=== PATIENT | female | born 1970 | race Caucasian/White ===

== ENCOUNTER → 2016-10-08 | Outpatient (CLI) | payer BC ==
[~2016-10-08] MED LIST: AZITHROMYCIN500 MG PO; ENTYVIO300 MG IV; IBUPROFEN800 MG; LIALDA1.2 G; OXYCODONE HCL5 M1 PO; WELCHOL625 MG PO; ZYRTEC10 M2 PO
[2016-10-08 14:19] LABS: URINE APPEARANCE CLEAR; URINE BILIRUBIN NEG (NEG); URINE COLOR YELLOW; URINE GLUCOSE NEG (NORM); URINE KETONE TRACE (NEG); URINE NITRATE NEG (NEG); URINE PH 5.5 (5-8); URINE PROTEIN NEG (NEG); URINE SPECIFIC GRAVITY 1.025 (1.003-1.035); URINE UROBILINOGEN 0.2 MG/DL (NORM)
[2016-10-08 14:20] LABS: URINE LEUKOCYTE ESTERASE NEG (NEG)
[2016-10-08 14:21] LABS: MICRO INDICATED? NO; URINE BLOOD NEG (NEG)
[2016-10-14 16:34] LABS: ANA SCREEN Negative (Negative); CARDIOLIPIN IGG (LUPUS) <14 GPL (<=14); CARDIOLIPIN IGM (LUPUS) <12 MPL (<=12); DRVVT MIX INTERP (LUPUS) Not Indicated (()); PROTROMBIN TIME LUPUS 10.5 sec (9.0-11.5); PT (LA MIX STUDY) 10.5 sec (<=11.5); PTT-LA 35 sec (<=40); PTT-LA SCREEN (LUPUS) 35 sec (<=40); THROMBIN TIME LUPUS 16 sec (13-19); dRVVT SCREEN (LUPUS) 39 sec (<=45)
== END | disposition home or self-care (01) ==
LOC: SLAB 12:56
PROVIDERS: Specialist
DX: D84.9 Immunodeficiency, unspecified (principal)
CPT/HCPCS: 36415; 81003; 85610; 85613; 85651; 85670; 85730; 86038; 86039; 86147; 86430

== ENCOUNTER 2016-10-21 15:44 | Emergency (ER) | payer BC ==
[~2016-10-21] VITALS: Ht 160 cm; Wt 70.3 kg
--- NOTE | ~2016-10-21 | CR72 ---
[facility] A Service of [facility] RADIOLOGY TEXT RESULTS PATIENT: DELIA MENDOZA LOCATION: SED : 66 UNIT #: [id number] AGE: [address]: Ledy Cummings MD SEX: F ORDER DR: [id number] [id number] E MR#: [id number] Acc #: [id number] NAME: DELIA MENDOZA : 1970 SEX: F STUDY DATE/TIME: 10/21/2016 16:34 UNIT: SED ROOM: STUDY DESCRIPTION: CR Chest Single View Portable Attending Physician: Ledy Cummings M.D. Ordering Physician: Ledy Cummings M.D. Primary Care Physician: Primary Care Physician No MEDICAL IMAGING REPORT This report is preliminary unless electronic signature is present. EXAM Portable chest x-ray, 10/21/2016 HISTORY Fever began 5 days ago. Fever, headache, epigastric abdominal pain, sore throat, slight dry cough, breast implants. FINDINGS AP radiograph of the chest is presented. Bilateral augmentation mammoplasty. Heart and mediastinum normal in size and contour. The lungs are well inflated. There is no evidence of acute infectious or inflammatory disease, pleural effusion or pneumothorax. No suspicious nodule. Dictated by... Tom Robert M.D. THIS IS AN ELECTRONICALLY VERIFIED REPORT Tom Robert M.D. at 10/25/2016 10:43 AM CORBIN/anton TD: 10/21/2016 22:25 JOB #: [id number] MEDICAL IMAGING REPORT Page 1 of 1
[~2016-10-21 15:44] MED LIST changes: -AZITHROMYCIN500 MG PO; -ENTYVIO300 MG IV; -OXYCODONE HCL5 M1 PO; -ZYRTEC10 M2 PO
[2016-10-21] MEDS ORDERED: ENTYVIO300 MG IV (15:49)
[2016-10-21] MEDS ORDERED: AZITHROMYCIN500 MG PO (15:50)
[2016-10-21] MEDS ORDERED: ZYRTEC10 M2 PO (15:50)
[2016-10-21 16:34] LABS: BASOPHIL# 0.1 X10e3 (0-0.3); BASOPHIL% 1.2 % (0-2.5); EOSINOPHIL% 0.3 % (0.0-7.0); HEMATOCRIT 40.1 % (35.0-45.0); HEMOGLOBIN 13.2 gm/dL (12.0-16.0); LYMPHOCYTE# 1.8 X10e3 (1.0-3.5); LYMPHOCYTE% 15.5 % (17.0-45.0); MEAN CELL VOLUME 96.6 FL (83-96); MEAN CORPUSCULAR HEMOGLOBIN 31.8 PG (28-34); MEAN CORPUSCULAR HGB CONC 32.9 g/dL (30-36); MEAN PLATELET VOLUME 8.1 FL (6.5-11.5); MONOCYTE# 0.5 X10e3 (0-1.0); MONOCYTE% 4.6 % (3.0-12.0); NEUTROPHIL# 9.4 X10e3 (1.5-7.1); NEUTROPHIL% 78.4 % (40-75); PLATELET COUNT 260 X10e3 (140-420); RED BLOOD COUNT 4.15 X10e (3.90-5.30); RED CELL DISTRIBUTION WIDTH 12.6 % (11.0-15.5)
[2016-10-21 16:41] LABS: DIFF IND NO
[2016-10-21 16:53] LABS: ALBUMIN SERUM 4.6 g/dL (3.5-5.0); BILIRUBIN, DIRECT 0.1 mg/dL (0.0-0.2); BILIRUBIN,INDIRECT 0.5 mg/dL (0.0-0.9); BILIRUBIN,TOTAL 0.6 mg/dL (0.2-2.0); BUN/CREATININE RATIO 12.5; CALCIUM SERUM 9.1 mg/dL (8.4-10.2); CREATININE SERUM 0.8 mg/dL (0.6-1.4); GLOM FILT RATE Estimated 87.3 mL/min (>60); POTASSIUM 3.7 mmol/L (3.5-5.1); PROTEIN TOTAL SERUM 7.9 g/dL (6.0-8.3)
[2016-10-21 16:54] LABS: URINE SOURCE CLEAN CATCH
[2016-10-21 17:01] LABS: URINE APPEARANCE CLEAR; URINE BILIRUBIN NEG (NEG); URINE BLOOD 3+ (NEG); URINE COLOR YELLOW; URINE GLUCOSE NEG (NORM); URINE LEUKOCYTE ESTERASE NEG (NEG); URINE NITRATE NEG (NEG); URINE PH 5.5 (5-8); URINE PROTEIN NEG (NEG); URINE UROBILINOGEN 0.2 MG/DL (NORM)
[2016-10-21 17:03] LABS: MICRO INDICATED? YES; URINE KETONE 2+ (NEG)
[2016-10-21 17:34] LABS: CULTURE INDICATED? NO; URINE BACTERIA NEG (NEG); URINE WBC 0-2 /[HPF] (0-5)
== END 2016-10-21 18:16 | disposition home or self-care (01) ==
LOC: SED 15:44
PROVIDERS: Student in an Organized Health Care Education/Training Program
DX: J02.9 Acute pharyngitis, unspecified (principal); B34.9 Viral infection, unspecified; E86.0 Dehydration; R11.2 Nausea with vomiting, unspecified
CPT/HCPCS: 36415; 71010; 80048; 80076; 81003; 85025; 86308; 87651; 96361; 96374; 96375; 99284; J1885; J2550

== ENCOUNTER 2016-10-24 10:23 | Inpatient (IN) | payer BC ==
[~2016-10-24] VITALS: Ht 233.7 cm; Wt 68.5 kg
--- NOTE | ~2016-10-24 | HP ---
Unit #: [id number] #: [id number] Patient: DELIA MENDOZA [id number] [address] [place], [place] [address] [id number] MR#: [id number] NAME: DELIA MENODZA ROOM: 468 Age: 46 Sex: F Admission Date: 10/24/2016 : 1970 Attending Physician: Ana M Mora M.D. Primary Care Physician: Primary Care Physician No HISTORY AND PHYSICAL CHIEF COMPLAINT Fever for eight days with vomiting and headache HISTORY OF PRESENT ILLNESS The patient is a 46-year-old female with past medical history of ulcerative colitis who presented [facility] for evaluation of the above. The patient states that she has had fever since October 16, 2016. She states that she has been taking the temperature orally. It has been around 100 typically; however, it has reached as high as 101. She states that she has had intermittent headache. The pain is in the back of her head and neck area. She described it as "sharp" it is sudden in onset. It typically lasts anywhere from five minutes to an hour. She states that it interfered with sleep on the evening prior to admission. She also reports nausea and vomiting. She has had three bouts of nonbloody emesis within the past 24 hours and two bouts of nonbloody diarrhea. She does have ulcerative colitis and is followed by [facility]. She states that she has lost about five pounds in the past week. She denies any cough. No difficulty breathing. No urinary symptoms. The patient was seen at [facility] Emergency Department on October 21, 2016. Laboratory at that time was notable for a white blood cell count of 12. She had a mono screen as well as a strep screen that were both negative. Urinalysis was negative except for 2+ ketones. Chest x-ray showed no acute abnormality. She was discharged home. Today she returned, white blood cell count is 9.8. A CT of the head was done and showed nothing acute. CT of the abdomen and pelvis was done and showed nothing acute. She was given a gram of Vancomycin in the emergency department as well as one liter of normal saline, a gram of Tylenol, 10 mg of Reglan, 25 mg of Benadryl, 4 mg of Zofran, a mg of dilaudid and 5 mg of valium. She was sent to [facility] for admission. PAST MEDICAL HISTORY 1. The patient denies hospitalizations 2. Ulcerative colitis diagnosed in 2005, followed by Dr. Gage at [facility]. She is on Lialda. She was also started on Entyvio in March 2016. She states that she is about one week past due for the Entyvio infusion PAST SURGICAL HISTORY 1. Esophagogastroduodenoscopy and colonoscopy within the past couple of years at [facility] (no records) Unit #: [id number] #: [id number] Patient: DELIA MENDOZA 2. Tubal ligation 3. Umbilical hernia repair SOCIAL HISTORY The patient lives with her . There is no tobacco or alcohol use. She is currently unemployed. Family history is notable for her dad having Parkinson's disease. ALLERGIES Ceclor HOME MEDICATIONS 1. Zyrtec 2. Ibuprofen 3. Phenergan 4. Lialda 5. Entyvio Home medications will need to be reviewed and verified. REVIEW OF SYSTEMS A complete review of systems is negative except as indicated in the HPI. The patient states that she has lost about five pounds over the past week. She has been seeing Dr. Hector Roque for allergy testing. She states that she had a rash involving her eyelids and neck within the past couple of months with flaking of the skin. She was placed on Clobetasol. She states that Dr. Roque is working her up for possible lupus as well as other issues. Complete review of systems is negative except as indicated in the history of present illness. The patient denies any current rash. The headache is currently absent. DIAGNOSTIC STUDIES LABORATORY: Rapid strep screen from October 21 was negative. Infectious mono screen from October 21 was negative. Complete blood count from today completely normal. Comprehensive metabolic panel notable for potassium of 3.3. Urinalysis notable for trace protein, 2+ ketones, 1+ blood with 0-2 red blood cells negative for bacteria. IMAGING: Chest x-ray also from the showed no acute findings. CT of the head is negative. CT of the abdomen and pelvis shows no acute findings. PHYSICAL EXAMINATION VITAL SIGNS: Temperature 97.6, pulse 91, respirations 16, blood pressure 130/84. Oxygen saturation is 100% on room air. GENERAL: The patient is a very pleasant female who is awake and alert in no acute distress. HEENT: The head is atraumatic. Mucous membranes are moist. NECK: Supple. Trachea is midline. CARDIOVASCULAR: Regular rate and rhythm. LUNGS: Clear to auscultation bilaterally with no increased work of breathing. ABDOMEN: Soft, nontender, with bowel sounds present in all four quadrants. EXTREMITIES: Nontender with no pedal edema. NEUROLOGIC: The patient is awake and alert. She follows commands. Unit #: [id number] #: [id number] Patient: DELIA MENDOZA PSYCHIATRIC: Mood and affect are normal. The patient is cooperative. SKIN: Of examined areas is warm and dry. ASSESSMENT The patient is a 46-year-old female with: 1. Headache, resolved. 2. Nausea, vomiting, diarrhea. 3. History of ulcerative colitis, maintained on Lialda and Entyvio followed by [facility]. 4. Hypokalemia with a potassium of 3.3. 5. Fever, mostly low-grade. Both fever and headache are listed as common side effects for Entyvio. However, the patient started this medication in March. PLAN 1. Admit for observation to [facility]. 2. Regular diet as tolerated. 3. Normal saline at 125 mL/hour. 4. Blood cultures x2 if not already done. 5. CT of the chest without contrast for further evaluation of fever and cough. 6. Stool studies including ova and parasites, Clostridium difficile, culture and sensitivity. 7. Toradol p.r.n. 8. Tylenol p.r.n. 9. Consult Dr. Fonseca regarding fever. 10. Check sedimentation rate and CRP. 11. Urine toxicology screen. 12. Check magnesium level. 13. Potassium/magnesium protocol. 14. Sequential compression devices for deep venous thrombosis prophylaxis. 15. Repeat labs in the morning. 16. Additional workup and consultants based on above. Dictated by Ana M Mora M.D. RICK/kizzy TD: 10/24/2016 17:21 JOB #: [id number] HISTORY AND PHYSICAL Page 1 of 1 X Ana M Mora MD X HISTORY AND PHYSICAL
--- NOTE | ~2016-10-24 | CT4 ---
[facility] A Service of [facility] RADIOLOGY TEXT RESULTS PATIENT: DELIA MENDOZA LOCATION: C4 468-01 : [birth year] UNIT #: [id number] AGE: [address]: Carmelina Light MD SEX: F ORDER DR: [id number] [address] [address] [id number] E MR#: [id number] Acc #: [id number] NAME: DELIA MENDOZA : 1970 SEX: F STUDY DATE/TIME: 10/24/2016 12:20 UNIT: SED ROOM: STUDY DESCRIPTION: CT Abd and Pelv Wo Cont Attending Physician: Gary Montenegro M.D. Ordering Physician: Gary Montenegro M.D. Primary Care Physician: Primary Care Physician No MEDICAL IMAGING REPORT This report is preliminary unless electronic signature is present. EXAM CT abdomen and pelvis without contrast INDICATION Head and neck pain for the past 2 days with nausea and dehydration. Right upper quadrant abdominal pain and hematuria for the past [address] of the abdomen and pelvis. This CT examination was performed with one or more of the following radiation dose reduction techniques: automatic exposure control, adjustment of mA and/or kV according to patient size, and iterative reconstruction. COMPARISON 06/10/2015. FINDINGS ABDOMEN WITHOUT CONTRAST: Included lung bases are clear. There are a few hepatic cysts that are unchanged from the prior. The spleen, adrenal, pancreas unremarkable. Gallbladder is moderately distended. There are no radiodense gallstones. Moderate colonic stool burden. Bowel loops nondilated. Normal appendix. Punctate nonobstructing calculus in the right kidney. No hydronephrosis. PELVIS WITHOUT CONTRAST: No radiodense bladder calculus. No pelvic mass. No aggressive appearing bone lesion. IMPRESSION 1. No acute findings in the abdomen or pelvis. 2. Punctate nonobstructing calculus in the right kidney. [facility] A Service of [facility] RADIOLOGY TEXT RESULTS PATIENT: DELIA MENDOZA LOCATION: C4 468-01 : [birth year] UNIT #: [id number] AGE: [address]: Carmelina Light MD SEX: F ORDER DR: 3. Normal appendix. 4. Nonspecific moderate prominence of the gallbladder without radiodense gallstones. Correlate with the patients symptoms. Gallbladder would be better evaluated with a right upper quadrant ultrasound. Dictated by... Manuel Manzanares M.D. THIS IS AN ELECTRONICALLY VERIFIED REPORT Manuel Manzanares M.D. at 10/25/2016 8:15 AM MAEVE/anna TD: 10/24/2016 13:39 JOB #: [id number] MEDICAL IMAGING REPORT Page 1 of 1
--- NOTE | ~2016-10-24 | XA198 ---
[facility] A Service of [facility] RADIOLOGY TEXT RESULTS PATIENT: DELIA MENDOZA LOCATION: [facility] 468 : [birth year] UNIT #: [id number] AGE: [address]: Carmelina Light MD SEX: F ORDER DR: [id number] [place], [place] [address] [id number] I MR#: [id number] Acc #: [id number] NAME: DELIA MENDOZA : 1970 SEX: F STUDY DATE/TIME: 10/26/2016 12:32 UNIT: [facility] ROOM: [facility] STUDY DESCRIPTION: XA Spinal Puncture Attending Physician: Carmelina Light M.D. Ordering Physician: Arjun Brown M.D. Primary Care Physician: Primary Care Physician No MEDICAL IMAGING REPORT This report is preliminary unless electronic signature is present EXAM Fluoroscopically-guided lumbar puncture CLINICAL HISTORY Headache and fever. PROCEDURE Informed consent was obtained. TA skin site was selected with fluoroscopic guidance and marked, sterilely prepped and draped and locally anesthetized. Total of 0.2 minutes of fluoroscopy was utilized and a single spot image obtained. A 22-gauge spinal needle was advanced at the L4 level and a clear colorless CSF was returned. A total of 11 mL was collected for sent for testing as requested. There were no complications and the patient tolerated the procedure well. IMPRESSION Successful fluoroscopically-guided lumbar puncture. 11 mL of clear colorless CSF was obtained and sent for testing and there were no complications. Dictated by... Bunny Miilan M.D. THIS IS AN ELECTRONICALLY VERIFIED REPORT Bunny Milian M.D. at 10/27/2016 2:54 PM PANCHO/daniela TD: 10/26/2016 21:34 JOB #: [id number] MEDICAL IMAGING REPORT [facility] A Service [facility] RADIOLOGY TEXT RESULTS PATIENT: DELIA MENDOZA LOCATION: [facility] : [birth year] UNIT #: [id number] AGE: [address]: Carmelina Light MD SEX: F ORDER DR: Page 1 of 1 COPY
--- NOTE | ~2016-10-24 | CT96 ---
[facility] A Service of [facility] RADIOLOGY TEXT RESULTS PATIENT: DELIA MENDOZA LOCATION: [facility] 468-01 : [birth year] UNIT #: [id number] AGE: [address]: Carmelina Light MD SEX: F ORDER DR: [id number] [facility] [address] [place], [place] [address] [id number] I MR#: [id number] Acc #: [id number] NAME: DELAI MENDOZA : 1970 SEX: F STUDY DATE/TIME: 10/28/2016 11:31 UNIT: [facility] ROOM: [facility] STUDY DESCRIPTION: CT Lumbar Spine W Cont Attending Physician: Carmelina Light M.D. Ordering Physician: Carmelina Light M.D. Primary Care Physician: Primary Care Physician No MEDICAL IMAGING REPORT This report is preliminary unless electronic signature is present EXAM CT lumbar spine with contrast, 10/28/2016 11:31 hours HISTORY 46-year-old woman with fever for 8 days, vomiting, urinary retention for 2 days requiring Jansen catheter. Possible viral meningitis. COMPARISON CT abdomen and pelvis, 10/24/[address] images were obtained from the lower thoracic spine through the mid sacrum. Sagittal and coronal reconstructions were performed. Contrast was Isovue-370, 100 mL IV. Total exam DLP 460 mGy-cm. This CT exam was performed with one or more of the following radiation dose reduction techniques: automatic exposure control, adjustment of mA and/or kV according to patient size, and iterative reconstruction. FINDINGS The lumbar spine is normally aligned. There are no bone lesions or fractures. T12-L1 is normal. L1-L2 is normal. L2-L3 is normal. L3-L4 demonstrates mild concentric disc bulging eccentric to the right with mild right-sided foraminal narrowing. No central canal stenosis. This is similar to 10/24/2016. L4-5 demonstrates eccentric to the left disc bulging with perhaps [facility] A Service of [facility] RADIOLOGY TEXT RESULTS PATIENT: DELIA MENDOZA LOCATION: [facility] 468-01 : [birth year] UNIT #: [id number] AGE: [address]: Carmelina Light MD SEX: F ORDER DR: foraminal protrusion on the left. This too is unchanged from 10/24/2016. L5-S1 demonstrates broad-based central disc bulging touching the anterior aspect of the thecal sac without change. There is no foraminal narrowing. There is no fluid, fluid collection or abnormal enhancement. IMPRESSION 1. There is no fluid, fluid collection or abnormal enhancement. 2. There is eccentric to the right disc bulge extending into the right lateral recess and the right lateral soft tissues at L3-L4 similar to 10/24/2016. 3. There is a left-sided foraminal disc bulge or protrusion at L4-5 also unchanged. 4. There is mild broad-based disc bulging centrally at L5-S1 with mild disc height loss, unchanged. STAT * RESULT Dictated by... Hannah Casper M.D. THIS IS AN ELECTRONICALLY VERIFIED REPORT Hannah Casper M.D. at 10/28/2016 2:30 PM Sarah TD: 10/28/2016 12:04 JOB #: [id number] MEDICAL IMAGING REPORT Page 1 of 1 COPY
--- NOTE | ~2016-10-24 | CO ---
Unit #: [id number] #: [id number] Patient: DELIA MENDOZA [id number] [address] [place], [place] [address] [id number] I MR#: [id number] NAME: DELIA MENDOZA ROOM: 468 Age: 46 Sex: F Admission Date: 10/24/2016 : 1970 Attending Physician: Carmelina Light M.D. Primary Care Physician: Nanette Primary Care Physician Requesting Physician: Ana M Mora M.D. Consultation Date: 10/25/2016 CONSULTATION REPORT REASON FOR CONSULTATION Fevers. HISTORY OF PRESENT ILLNESS This patient is a 46-year-old female with a past medical history of ulcerative colitis, most recently started on Entyvio medicine for her ulcerative colitis, which she started back in March. Since that point she has had on and off (1) infection-like issues. At one point she was treated for shingles, as well as several sinus infections and Strep. She is now being admitted for fevers, neck pain and headache, which she has had for the past eight or so days. States her temps have been around the 100s and has reached as high as 101. Describes the pain in her head as intermittent, as well as what she describes as kind of somewhat of a sharp neck pain, which comes and goes unexpectedly. She also reports complaints of some nausea and this morning she vomited, which is the first time she vomited in a couple of days. She denies any diarrhea. States that she has not had a bowel movement in about two days. We are now being consulted for fevers and antibiotic recommendations. The patient had a CT chest, which showed no acute disease, a CT abdomen and pelvis, which also was negative. She had a CT of her head, which showed no acute intracranial findings as well. Blood cultures are currently pending. Since admission, the patient has remained afebrile. She was given a g of vancomycin in the OR. No leukocytosis and nonseptic appearing. As a note, she also complains of an episode that she had in August in which she was having breaking out and highlights around her eyes, as well as swelling and also some flaking around her facial skin, which was resolved after she took some clobetasol. She was currently being worked up for possible lupus and other issues. PAST MEDICAL HISTORY Ulcerative colitis in 2005, who she followed by Dr. Coles, by [facility]. PAST SURGICAL HISTORY EGD and colonoscopies, tubal ligation and umbilical hernia repair. The patient does have bilateral breast implants. SOCIAL HISTORY She lives with her . Denies alcohol or tobacco use. Currently unemployed. The patient also was recently traveling to [place] in August, but denies any type of hiking or camping. FAMILY HISTORY Noncontributory. Unit #: [id number] #: [id number] Patient: DELIA MENDOZA ALLERGIES To Ceclor. CURRENT MEDICATIONS Patient is on no antibiotics at this time. REVIEW OF SYSTEMS All negative except for those stated in HPI. PHYSICAL EXAMINATION VITAL SIGNS: Temperature is 97.8, heart rate is 98, respirations 16, blood pressure is 109/16. GENERAL: No apparent distress, lying in bed, alert and oriented. CARDIOVASCULAR: Regular rate. PULMONARY: Clear to auscultation, nonlabored. GI: Soft, nontender, positive bowel sounds. SKIN: Dry and intact. No lesions on backside. No edema or erythema. Once patient sat up in bed to be examined, she did complain of headache. No sinus tenderness. NECK: Supple. No nuchal rigidity noted. DIAGNOSTIC STUDIES IMAGING STUDIES: CT head - no intracranial findings. CT of abdomen and pelvis - no acute findings. CT chest with no acute findings. LABORATORY DATA: Glucose 89, creatinine 0.7, sodium 133, chloride 104. White count 9.5, hemoglobin 10.9, platelets 243, sedimentation rate 10. CRP less than 0.5. Urinalysis - negative nitrates, negative leukocyte esterase, trace protein, negative glucose, negative bacteria, negative white count, 0 white count. Microbiology data pending. Blood cultures, throat swab negative for Strep. ASSESSMENT 1. Fevers, neck stiffness and headaches. 2. Recent shingles, possibly latent herpes zoster virus. 3. High risk for infections due to ulcerative colitis and Entyvio. 4. Possible viral illness. PLAN At this point will hold off any antibiotics. Patient is currently not septic appearing, afebrile, no leukocytosis and not septic appearing. Will check for herpes zoster virus and PCR, possibly this could be latent herpes due to the fact that patient recently had shingles. Will monitor temp closely. If patient continues to have fevers, as well as neck stiffness. If patient does spike fevers or has neck stiffness and continues headache, need to consider a lumbar puncture for better diagnostic evaluation. Will also rule out any atypical type of infection. Discussed plan with who is also at bedside. Will discuss patient with Dr. Raman and further recommendations will come from him. Dictated by... Kisha Rasheed APRN for Unit #: [id number] #: [id number] Patient: KELLYDELIAKenya Montiel/daphne TD: 10/26/2016 08:59 JOB #: [id number] CONSULTATION REPORT Page 1 of 1 X X CONSULTATION REPORT
--- NOTE | ~2016-10-24 | CT57 ---
[facility] A Service of [facility] RADIOLOGY TEXT RESULTS PATIENT: DELIA MENDOZA LOCATION: [facility] 468-01 : [birth year] UNIT #: [id number] AGE: [address]: Ana M Mora MD SEX: F ORDER DR: [id number] [facility] [address] [place], [place] [address] [id number] I MR#: [id number] Acc #: [id number] NAME: DELIA MENDOZA : 1970 SEX: F STUDY DATE/TIME: 10/24/2016 17:46 UNIT: [facility] ROOM: [facility] STUDY DESCRIPTION: CT Chest Wo Cont Attending Physician: Ana M Mora M.D. Ordering Physician: Ana M Mora M.D. Primary Care Physician: Primary Care Physician No MEDICAL IMAGING REPORT This report is preliminary unless electronic signature is present EXAM CT chest without contrast HISTORY Fever for 8 days. Cough. FINDINGS This CT exam was performed with one or more of the following radiation dose reduction techniques: Automatic exposure control, adjustment of mA and/or kV according to patient size, and iterative reconstruction. CT chest without contrast demonstrates mild atelectasis in the posterior lower lobes. No airspace infiltrates or effusions. No adenopathy. Breast implants. Several incidental hepatic cysts measure up to 2.7 cm. IMPRESSION No acute findings. No active disease. Dictated by... Arnie Mcnamara M.D. THIS IS AN ELECTRONICALLY VERIFIED REPORT Arnie Mcnamara M.D. at 10/24/2016 11:23 PM DFL/anton TD: 10/24/2016 20:51 JOB #: [id number] MEDICAL IMAGING REPORT Page 1 of 1 COPY
--- NOTE | ~2016-10-24 | CT71 ---
[facility] A Service [facility] RADIOLOGY TEXT RESULTS PATIENT: DELIA MENDOZA LOCATION: [facility] : [birth year] UNIT #: [id number] AGE: [address]: Carmelina Light MD SEX: F ORDER DR: [id number] [address] [address] [id number] E MR#: [id number] Acc #: [id number] NAME: DELIA MENDOZA : 1970 SEX: F STUDY DATE/TIME: 10/24/2016 11:10 UNIT: SED ROOM: STUDY DESCRIPTION: CT Head Wo Contrast Attending Physician: Gary Montenegro M.D. Ordering Physician: Gary Montenegro M.D. Primary Care Physician: Primary Care Physician No MEDICAL IMAGING REPORT This report is preliminary unless electronic signature is present. EXAM CT head without contrast INDICATION Head and neck pain for the past [address] of the head. This CT examination was performed with one or more of the following radiation dose reduction techniques: automatic exposure control, adjustment of mA and/or kV according to patient size, and iterative reconstruction. COMPARISON 12/03/2010. FINDINGS No acute hemorrhage, abnormal mass effect, extraaxial fluid collection or hydrocephalus. No depressed calvarial fracture. The paranasal sinuses and mastoid air cells are clear. IMPRESSION No acute intracranial findings. Dictated by... Manuel Manzanares M.D. THIS IS AN ELECTRONICALLY VERIFIED REPORT Manuel Manzanares M.D. at 10/25/2016 8:15 AM MARKD/anna TD: 10/24/2016 12:28 [facility] A Service [facility] RADIOLOGY TEXT RESULTS PATIENT: DELIA MENDOZA LOCATION: [facility] 468-01 : [birth year] UNIT #: [id number] AGE: [address]: Carmelina Light MD SEX: F ORDER DR: JOB #: [id number] MEDICAL IMAGING REPORT Page 1 of 1
--- NOTE | ~2016-10-24 | DS ---
Unit #: [id number] #: [id number] Patient: DELIA ARECHIGA [id number] [address] [address] [id number] MR#: [id number] NAME: DELIA ARECHIGA ROOM: 468 Age: 46 Sex: F Admission Date: 10/24/2016 : 1970 Discharge Date: 10/28/2016 Attending Physician: Carmelina Light M.D. Primary Care Physician: No Primary Care Physician DISCHARGE SUMMARY PRINCIPAL DIAGNOSES 1. Viral meningitis. 2. Acute urinary retention, likely Flexeril induced. 3. Left trapezius strain. 4. Chronic immunosuppression. 5. Ulcerative colitis. 6. Mild protein malnutrition. 7. Seasonal allergies. CONSULTANTS Dr. Raman, infectious disease. PROCEDURES PERFORMED Lumbar puncture on 10/26/2016. This occurred without complication. DIAGNOSTIC DATA IMAGING: CT head without contrast on 10/24/2016 with no acute findings. CT scan of the abdomen and pelvis without contrast on 10/24/2016 with no acute findings. Nonobstructing calculus in the right kidney noted. Moderate prominence of the gallbladder without gallstones. CT of the chest without contrast on 10/24/[address] of the lumbar spine with contrast on 10/28/2016 with no fluid collection or abnormal enhancement. There is disc bulging primarily on the right extending into the right lateral recess and right lateral soft tissues at L3-L4. Left-sided foraminal disc bulge or protrusion L4-L5. Two-dimensional echocardiogram with an ejection fraction of 55%. There is trace to mild mitral regurgitation and trace to mild tricuspid regurgitation. Normal right ventricular systolic pressure. CLINICAL HISTORY/HOSPITAL COURSE Ms. Arechiga is a very nice 46-year-old female who presented to the emergency department with intense headache, neck pain and fever of several days duration. Please refer to history and physical for further details. Initial workup in the emergency department including CT scan of the head, chest, abdomen and pelvis was unremarkable. Urinalysis was also unremarkable. The patient was initially placed in observation for evaluation. The patient had blood cultures done which were also unremarkable. However, she continued to complain about significant headache and neck pain and ultimately she underwent lumbar puncture. Fluid studies are most consistent with a viral meningitis. However, I Unit #: [id number] #: [id number] Patient: DELIA ARECHIGA will note that HSV PCR was negative and West Nile PCR is still currently pending. However, with Flexeril and oxycodone her headache has essentially resolved. The plan at this point is just supportive measures only, i.e. pain relief. The patient's fever has improved significantly during hospitalization. I suspect her viral meningitis is at least partially related to her venous suppression she is on for ulcerative colitis. I have instructed Ms. Arechiga to follow up with her primary career resource specialist, Dr. Gage, to discuss further treatment. Until then she should remain on Lialda. Approximately 48 hours after beginning Flexeril and oxycodone the patient developed acute urinary retention and ultimately had to have Jansen catheter placement. At this point the patient has not taken Flexeril in almost 24 hours. I am going to discontinue the Jansen and see if she has any recurrent urinary retention. A STAT CT scan of the lumbar spine did not reveal any acute findings. MRI was not done due to significant claustrophobia. If the patient is able to urinate, I think she can be safely discharged home later today. DISCHARGE CONDITION Stable. DISCHARGE DISPOSITION Discharge to home. DISCHARGE MEDICATIONS 1. Zyrtec 10 mg daily. 2. Lialda 4 tablets in the morning. 3. Oxycodone 5 mg 1 q.8 h. p.r.n. pain. Number given 20. DIET The patient is instructed to follow a regular diet with any restrictions as per Dr. Gage. ACTIVITY She can increase her activity as tolerated. FOLLOWUP The patient will follow up with Dr. Gage, her primary career resource specialist at [facility], in approximately two weeks. Dictated by... Carmelina Light M.D. RIC/manpreet TD: 10/29/2016 11:38 JOB #: [id number] Unit #: [id number] #: [id number] Patient: DELIA ARECHIGA DISCHARGE SUMMARY Page 1 of 1 X Carmelina Light MD X DISCHARGE SUMMARY
[~2016-10-24 10:23] MED LIST changes: +AZITHROMYCIN500 MG PO; +ENTYVIO300 MG IV; +ZYRTEC10 M2 PO
[2016-10-24 11:47] LABS: BASOPHIL# 0.1 X10e3 (0-0.3); BASOPHIL% 1.4 % (0-2.5); EOSINOPHIL# 0.3 X10e3 (0-0.7); EOSINOPHIL% 3.2 % (0.0-7.0); HEMATOCRIT 37.9 % (35.0-45.0); HEMOGLOBIN 12.6 gm/dL (12.0-16.0); LYMPHOCYTE# 2.2 X10e3 (1.0-3.5); MEAN CELL VOLUME 95.1 FL (83-96); MEAN CORPUSCULAR HEMOGLOBIN 31.7 PG (28-34); MEAN CORPUSCULAR HGB CONC 33.3 g/dL (30-36); MEAN PLATELET VOLUME 8.7 FL (6.5-11.5); MONOCYTE# 0.8 X10e3 (0-1.0); MONOCYTE% 8.3 % (3.0-12.0); NEUTROPHIL# 6.3 X10e3 (1.5-7.1); NEUTROPHIL% 64.1 % (40-75); PLATELET COUNT 320 X10e3 (140-420); RED BLOOD COUNT 3.99 X10e (3.90-5.30); RED CELL DISTRIBUTION WIDTH 13.2 % (11.0-15.5); WHITE BLOOD COUNT 9.8 X10e3 (4.0-10.5)
[2016-10-24 11:52] LABS: DIFF IND NO; URINE SOURCE CLEAN CATCH
[2016-10-24 11:54] LABS: URINE APPEARANCE CLEAR; URINE BILIRUBIN NEG (NEG); URINE BLOOD 1+ (NEG); URINE COLOR YELLOW; URINE GLUCOSE NEG (NORM); URINE LEUKOCYTE ESTERASE NEG (NEG); URINE NITRATE NEG (NEG); URINE PH 5.5 (5-8); URINE PROTEIN TRACE (NEG); URINE SPECIFIC GRAVITY 1.025 (1.003-1.035); URINE UROBILINOGEN 0.2 MG/DL (NORM)
[2016-10-24 12:04] LABS: URINE KETONE 2+ (NEG)
[2016-10-24 12:05] LABS: ALBUMIN SERUM 4.4 g/dL (3.5-5.0); ALKALINE PHOSPHATASE 54 U/L (32-92); ALT (SGPT) 15 U/L (10-40); AST (SGOT) 18 U/L (10-42); BILIRUBIN,TOTAL 0.8 mg/dL (0.2-2.0); BLOOD UREA NITROGEN 13 mg/dL (9-23); BUN/CREATININE RATIO 16.25; CALCIUM SERUM 8.7 mg/dL (8.4-10.2); CARBON DIOXIDE 25 mmol/L (22-31); CHLORIDE 104 mmol/L (100-111); CREATININE SERUM 0.8 mg/dL (0.6-1.4); GLOM FILT RATE Estimated 87.3 mL/min (>60); GLUCOSE FASTING 98 mg/dL (70-110); MICRO INDICATED? YES; POTASSIUM 3.3 mmol/L (3.5-5.1); PROTEIN TOTAL SERUM 7.6 g/dL (6.0-8.3); SODIUM 136 mmol/L (135-145)
[2016-10-24 12:07] LABS: BILIRUBIN, DIRECT <0.1 mg/dL (0.0-0.2); BILIRUBIN,INDIRECT 0.7 mg/dL (0.0-0.9); URINE RBC 0-2 /[HPF] (0-2)
[2016-10-24 12:08] LABS: CULTURE INDICATED? NO; URINE BACTERIA NEG (NEG); URINE WBC 0-2 /[HPF] (0-5)
[2016-10-24 18:38] LABS: AMPHETAMINE NEG (NEG); BARBITURATES NEG (NEG); BENZODIAZEPINES POS (NEG); COCAINE NEG (NEG); MARIJUANA NEG (NEG); OPIATES POS (NEG); TRICYCLIC ANTIDEPRESSANTS NEG (NEG); U METHADONE NEG (NEG)
[2016-10-25 03:27] LABS: HEMATOCRIT 32.3 % (35.0-45.0); HEMOGLOBIN 10.9 gm/dL (12.0-16.0); MEAN CORPUSCULAR HEMOGLOBIN 32.4 PG (28-34); MEAN CORPUSCULAR HGB CONC 33.8 g/dL (30-36); MEAN PLATELET VOLUME 7.8 FL (6.5-11.5); RED BLOOD COUNT 3.36 X10e (3.90-5.30); WHITE BLOOD COUNT 9.5 X10e3 (4.0-10.5)
[2016-10-25 03:58] LABS: ALBUMIN SERUM 3.3 g/dL (3.5-5.0); BILIRUBIN,TOTAL 0.7 mg/dL (0.2-2.0); BUN/CREATININE RATIO 12.85; CREATININE SERUM 0.7 mg/dL (0.6-1.4); GLOM FILT RATE Estimated 102.5 mL/min (>60); POTASSIUM 4.1 mmol/L (3.5-5.1); PROTEIN TOTAL SERUM 5.7 g/dL (6.0-8.3)
[2016-10-25 15:38] LABS: PARTIAL THROMBOPLASTIN TIME 21.7 SECONDS (23.5-31.3); PROTHROMBIN TIME (PATIENT) 11.1 SECONDS (10.0-11.7)
[2016-10-26 03:41] LABS: MAGNESIUM 2.1 mg/dL (1.6-3.0); POTASSIUM 3.6 mmol/L (3.5-5.1)
[2016-10-26 09:29] LABS: HEMATOCRIT 34.2 % (35.0-45.0); HEMOGLOBIN 11.4 gm/dL (12.0-16.0); MEAN CELL VOLUME 96.5 FL (83-96); MEAN CORPUSCULAR HEMOGLOBIN 32.3 PG (28-34); MEAN CORPUSCULAR HGB CONC 33.4 g/dL (30-36); MEAN PLATELET VOLUME 8.1 FL (6.5-11.5); RED BLOOD COUNT 3.55 X10e (3.90-5.30)
[2016-10-26 10:11] LABS: CRYPTO AG CSF/SERUM NEG (NEG); CRYPTO AG SOURCE SERUM
[2016-10-26 11:13] LABS: HEMATOCRIT 34.9 % (35.0-45.0); HEMOGLOBIN 11.4 gm/dL (12.0-16.0); MEAN CELL VOLUME 96.5 FL (83-96); MEAN CORPUSCULAR HEMOGLOBIN 31.6 PG (28-34); MEAN CORPUSCULAR HGB CONC 32.7 g/dL (30-36); MEAN PLATELET VOLUME 7.7 FL (6.5-11.5); RED BLOOD COUNT 3.61 X10e (3.90-5.30); RED CELL DISTRIBUTION WIDTH 13.1 % (11.0-15.5); WHITE BLOOD COUNT 9.2 X10e3 (4.0-10.5)
[2016-10-26 14:52] LABS: GLUCOSE-CSF 45 mg/dL (50-80); PROTEIN-CSF 120 mg/dL (15-45)
[2016-10-26 14:56] LABS: CSF APPEARANCE CLEAR (CLEAR); CSF LYMPHOCYTE 95 %; CSF MONOCYTE 4 %; CSF NEUTROPHIL 1 %; CSF RBC 10 CMM ([, 0]); CSF TUBE NUMBER 3; CSF WBC 121 CMM (0-8); CSF XANTHACHROMIC NO
[2016-10-26 15:35] LABS: HSV 1 DNA Not Detected (Not Detected); HSV 2 DNA Not Detected (Not Detected)
[2016-10-27 03:38] LABS: HEMATOCRIT 35.8 % (35.0-45.0); HEMOGLOBIN 11.8 gm/dL (12.0-16.0); MEAN CORPUSCULAR HEMOGLOBIN 31.9 PG (28-34); MEAN CORPUSCULAR HGB CONC 32.9 g/dL (30-36); RED BLOOD COUNT 3.69 X10e (3.90-5.30); RED CELL DISTRIBUTION WIDTH 13.1 % (11.0-15.5); WHITE BLOOD COUNT 8.9 X10e3 (4.0-10.5)
[2016-10-27 04:04] LABS: POTASSIUM 4.2 mmol/L (3.5-5.1)
[2016-10-27 08:54] LABS: CRYPTO AG CSF/SERUM NEG (NEG); CRYPTO AG SOURCE CSF
[2016-10-28 14:12] LABS: URINE APPEARANCE CLEAR; URINE BILIRUBIN NEG (NEG); URINE BLOOD NEG (NEG); URINE COLOR YELLOW; URINE GLUCOSE NEG (NEG); URINE KETONE NEG (NEG); URINE LEUKOCYTE ESTERASE 2+ (NEG); URINE NITRATE NEG (NEG); URINE PROTEIN NEG (NEG); URINE SPECIFIC GRAVITY 1.008 (1.003-1.035); URINE UROBILINOGEN 0.2 MG/DL (NEG)
[2016-10-28 14:16] LABS: URINE BACTERIA AUWI NEG (NEGATIVE); URINE SQUAMOUS EPITHELIAL CELL NONE SEEN /[HPF]
[2016-10-28] MEDS ORDERED: OXYCODONE HCL5 M1 PO (15:56)
[2016-11-01 14:57] LABS: HSV 1 DNA Not Detected (Not Detected); HSV 2 DNA Not Detected (Not Detected)
== END 2016-10-28 16:35 | disposition home or self-care (01) | DRG 75 ==
LOC: SED 10:23 → SEDOF 14:00 → C4C 14:00 → SEDOF 15:15 → C4C 15:15 → SEDOF 15:50 → C4C 15:50 → SED 15:50 → SEDOF 15:50 → C4C 10-25 07:25
PROVIDERS: Emergency Medicine; Family Medicine; Internal Medicine; Internal Medicine Hematology & Oncology; Internal Medicine Infectious Disease; Nurse Practitioner Family
PROC: 009U3ZX Drainage of Spinal Canal, Percutaneous Approach, Diagnostic (ICD-10-PCS; principal; 2016-10-26)
PROC: B01BYZZ Fluoroscopy of Spinal Cord using Other Contrast (ICD-10-PCS; 2016-10-26)
PROC: B24BYZZ Ultrasonography of Heart with Aorta using Other Contrast (ICD-10-PCS; 2016-10-26)
DX: A87.9 Viral meningitis, unspecified (principal); K51.90 Ulcerative colitis, unspecified, without complications; E44.1 Mild protein-calorie malnutrition; Z68.1 Body mass index [BMI] 19.9 or less, adult; R50.9 Fever, unspecified; R51 Headache; Z98.51 Tubal ligation status; R11.2 Nausea with vomiting, unspecified; E87.6 Hypokalemia; R33.9 Retention of urine, unspecified; S46.812A Strain of other muscles, fascia and tendons at shoulder and upper arm level, left arm, initial encounter
CPT/HCPCS: 36415; 70450; 71250; 72132; 74176; 77003; 80048; 80053; 80076; 80307; 81003; 82945; 83735; 84132; 84157; 84443; 85025; 85027; 85610; 85652; 85730; 86140; 86790; 87040; 87070; 87205; 87529; 87899; 89051; 93306; 96365; 96375; 99285; J0133; J0171; J1170; J1200; J1885; J2405; J2550; J2765; J2920; J3360; J3370; J3475; Q9967